=== PATIENT | male | born 1955 | race Caucasian/White ===

== ENCOUNTER 2019-09-19 07:07 | Day surgery (SDC) | payer SELFPAY ==
[2019-09-18 09:51] VITALS: BMI 28.4
[2019-09-19 07:32] VITALS: BP 141/81; PULSE 70; RESP 18; TEMP 36.6; O2SAT 96
[2019-09-19] MEDS: sodium chloride 0.9% 1,000 ML 30 ML (07:40)
--- NOTE | 2019-09-19 08:11 | PM.HPUD ---
H&P update H&P Update: DATE OF SURGERY/PROCEDURE: 09/19/19 DATE H&P PERFORMED: 05/29/19 PLANNED PROCEDURE: Operation Date: 09/19/19 08:00 Proposed Procedures p Colonoscopy(Not Applicable) - Harshal López MD Full H&P HPI: PRIMARY INDICATION/DIAGNOSIS FOR SURGICAL PROCEDURE: Family history of colon cancer PLANNED PROCEDURE: Colonoscopy under MAC HPI: No GI symptoms Perinent History: Social History: Social History Smoking and tobacco status: never smoked Alcohol intake: never Pertinent Exam Findings: PHYSICAL EXAM: alert and oriented x 3 OTHER PERTINENT EXAM FINDINGS: Abdomen: Soft A&P Assessment and plan (1) Family history of colon cancer: Plan for colonoscopy under MAC Status: Acute Code(s): Z80.0 - Family history of malignant neoplasm of digestive organs
--- NOTE | 2019-09-19 08:15 | ANES.PREANES ---
Pre-Anesthetic Assessment Pre-Anesthetic Assessment: Height/Weight: Height 1.65 m Weight 77.564 kg Temp Pulse Resp BP Pulse Ox 97.8 F 70 18 141/81 96 09/19/19 07:32 09/19/19 07:32 09/19/19 07:32 09/19/19 07:32 09/19/19 07:32 Proposed Procedure: Operation Date: 09/19/19 08:00 Proposed Procedures p Colonoscopy(Not Applicable) - Harshal López MD Was Beta Joe taken within 24 hours: N/A Last intake: Intake Last Liquid Date 09/18/19 Last Liquid Time 22:00 Last Solid Date 09/17/19 Last Solid Time 20:00 Last Intake: 00:00 Social: Social History: No alcohol and No tobacco Exam: Pre-Anes Outpt Exam: alert, oriented x 3, clear to auscultation bilaterally and regular rate & rhythm Airway: Submandibular: WNL Cervical ROM: WNL MP: 2 Dentition: Full History/ROS: No significant history except as noted and No significant complaints Pulmonary: Pulmonary: None reported CV/HEM: CV/HEM: None reported : : None reported Hepatic: Hepatic: None reported GI: GI: None reported Metabolic: Metabolic: None reported Musc/skel: Musc/skel: None reported Neuropsych: Neuropsych: None reported Anesthetic Plan: ASA status: II Anesthesia: MAC Risk of > 500 ml blood loss (7ml/kg in children): No PFSH Anesthesia PFSH: Family History (Updated 09/19/19 @ 08:15 by Harshal López MD) Brother Cancer Colon cancer Social History (Updated 09/18/19 @ 08:55 by Angela Mcgovern) Smoking and tobacco status: never smoked Alcohol intake: never Data Anesthesia Cardiac Studies: No Data to Display
[2019-09-19 08:40] VITALS: BP 102/65; PULSE 68; RESP 16; TEMP 36.1; O2SAT 95
[2019-09-19 08:52] VITALS: BP 112/77; PULSE 65; RESP 16; O2SAT 97
--- NOTE | 2019-09-19 14:44 | ANE.PACU ---
 Inpatient post-anesthesia follow up: Airway intact: Yes Vital signs: Temperature 96.9 F Pulse Rate [Monito r] 65 Respiratory Rate 16 Blood Pressure [Le ft Arm] 112/77 Pulse Oximetry 97 Oxygen Delivery Me thod Room Air Oxygen Flow Rate 2 Fraction of Inspir ed Oxygen Hydration adequate: Yes Nausea and vomiting: No Mental status: Baseline
== END 2019-09-19 09:05 | disposition home or self-care (01) ==
PROVIDERS: Family Provider Urology; Visit Provider Surgery
PROC: 0DJD8ZZ Inspection of Lower Intestinal Tract, Via Natural or Artificial Opening Endoscopic (ICD-10-PCS; CPT 45378; principal; 2019-09-19 08:00)
DX: Z80.0 Family history of malignant neoplasm of digestive organs (principal); D12.2 Benign neoplasm of ascending colon; D12.4 Benign neoplasm of descending colon; D12.3 Benign neoplasm of transverse colon; K57.30 Diverticulosis of large intestine without perforation or abscess without bleeding; D12.5 Benign neoplasm of sigmoid colon
CPT/HCPCS: 12345; 45380; 45385; 88305; 96365; J2704; J7030

== ENCOUNTER → 2020-07-15 08:42 | Outpatient (BNVA) | payer SELFPAY | PROVIDERS: Family Provider Urology; PCP Urology; Visit Provider Urology | DX: R97.20 Elevated prostate specific antigen [PSA] (principal); N41.1 Chronic prostatitis | CPT/HCPCS: 81003; 84153 ==

== ENCOUNTER → 2021-01-13 08:48 | Outpatient (BNVA) | payer MEDICARE, SELFPAY | PROVIDERS: Family Provider Urology; Visit Provider Urology | DX: R97.20 Elevated prostate specific antigen [PSA] (principal); N41.1 Chronic prostatitis; Z80.42 Family history of malignant neoplasm of prostate | CPT/HCPCS: 81003; 84153 ==

== ENCOUNTER → 2021-07-16 08:27 | Outpatient (BNVA) | payer OTHER, SELFPAY | PROVIDERS: Family Provider Urology; PCP Nurse Practitioner Family; Visit Provider Urology | DX: R97.20 Elevated prostate specific antigen [PSA] (principal); Z80.42 Family history of malignant neoplasm of prostate; N52.9 Male erectile dysfunction, unspecified | CPT/HCPCS: 81003; 84153 ==

== ENCOUNTER 2022-01-13 07:31 | Outpatient (CLI) | payer OTHER, SELFPAY ==
[2022-01-13 08:29] LABS: Prostate Specific Antigen Scr 10.39 ng/mL (0-4)
== END 2022-01-13 07:32 | disposition home or self-care (01) ==
PROVIDERS: PCP Nurse Practitioner Family; Visit Provider Urology
DX: N41.1 Chronic prostatitis (principal); R97.20 Elevated prostate specific antigen [PSA]
CPT/HCPCS: 36415; 81003; G0103

== ENCOUNTER 2022-07-07 08:06 | Outpatient (CLI) | payer MEDICARE, SELFPAY ==
[2022-07-07 09:06] LABS: Prostate Specific AG Urology 10.95 ng/mL (0-4)
== END 2022-07-07 08:07 | disposition home or self-care (01) ==
LOC: LAB 08:20
PROVIDERS: PCP Nurse Practitioner Family; Visit Provider Urology
DX: R97.20 Elevated prostate specific antigen [PSA] (principal)
CPT/HCPCS: 36415; 81003; 84153

== ENCOUNTER 2022-08-07 07:30 | Outpatient (CLI) | payer MEDICARE, SELFPAY ==
[2022-08-07 07:46] VITALS: BMI 29.1
--- NOTE | 2022-08-07 08:27 | ECG_ITS ---
[facility] Test Date: 2022-08-07 Pat Name: Mirza Bloom Department: Room: Gender: Male Hand Etcher: : 1955 Requested By: Keyanna Bales Order Number: [id number] Anaya MD: Ruthy Lima M.D. Interpretive Statements NAME OF STUDY: EXERCISE SESTAMIBI STRESS TEST INDICATION: Previous PR; Arrhythmia PROCEDURE: At the baseline, the patient's blood pressure was 172/80 mm Hg with a heart rate of 74 bpm and oxygen saturation of 97%. The baseline electrocardiogram showed normal sinus rhythm with normal ST-Ts. ??? The patient exercised for 7 minutes and 1 second on a [standard José Miguel protocol]. Patient attained a maximum heart rate of 145 beats per minute( 94 % of the maximum predicted heart rate) with a blood pressure at the peak exercise of 210/97 mm Hg. The EKG at the peak exercise revealed sinus tachycardia with no significant ST-T wave chanfes. Patient did not have any chest pain or any significant cardiac arrhythmias with the exercise. Frequent PVC couplets noted during exercise. ??? During the recovery phase, there were no new changes. ??? Blood pressure at the end of the recovery phase was 178/93 mm Hg with a heart rate of 76 beats per minute and oxygen saturation of 98%. ??? CONCLUSION: 1. Normal EKG response to treadmill exercise. 2. No exercise-induced chest pain or cardiac arrhythmia. 3. Good exercise tolerance, attained a maximum of 10.2 METs. 4. Baseline hypertension with normal response to exercise. 5. Perfusion portion of the study will be reported separately. RESULTS TO DR BALES Electronically Signed On 08-08-2022 12:27:34 CHEMICAL RADIATION TECHNICIAN by Ruthy Lima M.D. [id number]
--- NOTE | 2022-08-07 08:28 | NMCV_ITS ---
NM merna perf SPECT r/s* [id number] Wolf Mirza Age: 66 Gender: M : 1955 Exam Date: 08/07/2022 08:45 Ordering Phys: Keyanna Segovia MD ([email or web address]) Technologist: BRITTANY Arellano Exam Location: [facility] Indications: CORONARY ANGIOPLASTY STATUS STRESS TEST Please see separate stress test report in [facility] for full findings IMAGE PROTOCOL Rest/Stress 1 Exercise Day Radiopharmaceutical Dose (mCi) Administration Site Administered by Rest: Tc-99m 9.6 IV BRITTANY Adkins Sestamibi Stress:Tc-99m 31.3 IV BRITTANY Adkins Sestamibi Rest: 07-Aug-2022 60 Discovery 630 Stress: 07-Aug-2022 15 Discovery 630 Radiopharmaceutical was injected at 86 % maximum heart rate. Images obtained in supine and prone position. SPECT RESULTS Technical Quality: Excellent Raw Data Analysis: Normal Image Corrections: No attenuation or motion correction applied Summed Stress Score: 0 Summed Rest Score: 0 Summed Difference Score: 0 PERFUSION FINDINGS Small sized perfusion abnormality of moderate severity of basal to apical inferior and apical lateral ugalde on rest and supine stress images with improved tracer uptake in prone stress images. FUNCTIONAL RESULTS (calculated via Gated SPECT) Stress Image LV EF (%): 59 Stress EDV (mL):145 TID: 0.82 Stress ESV (mL):59 FUNCTIONAL FINDINGS: The left ventricle is normal in size. Transient Ischemia Dilatation of 0.82. There is normal left ventricular systolic function. The left ventricular ejection fraction is normal with a value of 59%. There is normal left ventricular wall thickening. IMPRESSIONS 1. Small sized perfusion abnormality of moderate severity of basal to apical inferior and apical lateral ugalde. 2. This may represent attenuation artifact or old myocardial infarction in right coronary artery. 3. Overall left ventricular systolic function is normal without regional wall motion abnormalities, LVEF=59%. 4. EKG portion of the study will be reported separately. 5. No coronary ischemia based on this study. Ruthy Lima MD (Electronically Signed) Final Date: 09 August 2022 22:38 S
[2022-08-07 09:37] VITALS: BP 180/81; PULSE 73
== END 2022-08-07 07:31 | disposition home or self-care (01) ==
PROVIDERS: PCP Nurse Practitioner Family; Visit Provider Internal Medicine Cardiovascular Disease
DX: I25.2 Old myocardial infarction (principal); I49.9 Cardiac arrhythmia, unspecified
CPT/HCPCS: 36415; 78452; 93017; A9500

== ENCOUNTER 2022-08-14 09:00 | Outpatient (CLI) | payer MEDICARE, SELFPAY ==
--- NOTE | 2022-08-14 09:15 | USCV_ITS ---
Mirza Bloom Age: 66 Gender: M : 1955 Exam Date: 08/14/2022 09:20 Ordering Phys: Keyanna Segovia MD ([email or web address]) Technologist: CHARLES [place] [facility] [place]ication: ARRHYTHMIA BP: 132 / 72 HR: 56 Rhythm: Sinus Technical Quality: Good MEASUREMENTS (Male / Female) Normal Values 2D ECHO LVOT Diameter 2.0 cm LV Ejection Fraction MOD 2C 57.9 % LV Ejection Fraction 2C AL 58.6 % LA Diameter 3.1 cm LA Width 3.4 cm LA Height 5.4 cm RA Width 3.9 cm RA Height 4.4 cm Aorta at Sinotubular Diameter 2.6 cm IVC Diameter 1.2 cm M-MODE Aortic Annulus Diameter 3.2 cm LA Ao Ratio MM 0.9 MV E Point Septal Separation 0.8 cm DOPPLER AV Peak Velocity 167.7 cm/s LVOT Peak Velocity 83.0 cm/s AV Area Cont Eq vti 1.7 cm squared AV Area Cont Eq pk 1.6 cm squared MV Peak Velocity 90.0 cm/s MV Area PHT 3.1 cm squared Mitral E to A Ratio 0.9 MV E' Velocity 38.5 cm/s Mitral E to MV E' Ratio 7.2 Mitral E to LV E' Lateral Ratio 6.1 Mitral E to LV E' Septal Ratio 8.7 TR Peak Velocity 287.8 cm/s TR Peak Gradient 33.1 mmHg TR Mean Velocity 230.6 cm/s TR Mean Gradient 22.3 mmHg TR Velocity Time Integral 100.9 cm TV Peak E Velocity 57.0 cm/s Right Atrial Pressure 3.0 mmHg Pulmonary Artery Systolic Pressu 36.1 mmHg PV Peak Velocity 99.0 cm/s RV Acceleration Time 0.1 s RV Ejection Time 0.3 s RV AcT/ET 0.5 FINDINGS Left Ventricle Normal left ventricular size with a borderline low ejection fraction of 50%(visual). Mild diffuse hypokinesia of the left ventricle. Right Ventricle The right ventricle is normal in size and function. Right Atrium Mildly increased right atrial size. Left Atrium Mildly increased left atrial size. Mitral Valve Mild mitral valve regurgitation. Aortic Valve Trace aortic valve regurgitation. Tricuspid Valve [id number] tricuspid valve regurgitation. Estimated pulmonary artery peak systolic pressure of 36 mmHg Pulmonic Valve No gross abnormalities noted Pericardium Normal pericardium without effusion. Aorta Normal aortic annulus size. IVC Normal inferior vena cava. CONCLUSIONS Normal left ventricular size with a borderline low ejection fraction of 50%(visual). Mild diffuse hypokinesia of the left ventricle. Mild biatrial enlargement The right ventricle is normal in size and function. Mild mitral valve regurgitation. Trace aortic valve regurgitation. Vjnb-[id number] tricuspid valve regurgitation. Estimated pulmonary artery peak systolic pressure of 36 mmHg There is no pericardial effusion. There are no intracardiac masses. No similar previous studies are available for comparison Patient was found to have frequent arrhythmias in the form of bigeminy, during the study Dr Keyanna Segovia MD [facility] (Electronically Signed) Final Date: 14 August 2022 19:39 S
== END 2022-08-14 09:01 | disposition home or self-care (01) ==
LOC: RAD 09:01
PROVIDERS: PCP Nurse Practitioner Family; Visit Provider Internal Medicine Cardiovascular Disease
DX: I49.3 Ventricular premature depolarization (principal); I08.3 Combined rheumatic disorders of mitral, aortic and tricuspid valves; R06.09 Other forms of dyspnea
CPT/HCPCS: 93306

== ENCOUNTER → 2022-12-28 10:14 | Outpatient (BNVA) | payer MEDICARE, SELFPAY | PROVIDERS: PCP Family Medicine; Visit Provider Urology | DX: R97.20 Elevated prostate specific antigen [PSA] (principal) | CPT/HCPCS: 84153 ==

== ENCOUNTER → 2023-01-04 13:40 | Outpatient (BNVA) | payer MEDICARE, SELFPAY | PROVIDERS: PCP Family Medicine; Visit Provider Urology | DX: N41.1 Chronic prostatitis (principal); R97.20 Elevated prostate specific antigen [PSA]; Z80.42 Family history of malignant neoplasm of prostate; N52.9 Male erectile dysfunction, unspecified | CPT/HCPCS: 81003; 99213 ==

== ENCOUNTER → 2023-05-24 13:54 | Outpatient (BNVA) | payer MEDICARE, SELFPAY | PROVIDERS: PCP Nurse Practitioner Family; Visit Provider Internal Medicine Cardiovascular Disease | DX: I49.3 Ventricular premature depolarization (principal); I42.8 Other cardiomyopathies; I10 Essential (primary) hypertension; I07.1 Rheumatic tricuspid insufficiency | CPT/HCPCS: 99214 ==

== ENCOUNTER → 2024-05-22 13:54 | Outpatient (BNVA) | payer MEDICARE, SELFPAY | PROVIDERS: PCP Nurse Practitioner Family; Visit Provider Internal Medicine Cardiovascular Disease | DX: I42.8 Other cardiomyopathies (principal); I10 Essential (primary) hypertension; I49.3 Ventricular premature depolarization; I36.1 Nonrheumatic tricuspid (valve) insufficiency | CPT/HCPCS: 99214 ==

== ENCOUNTER → 2024-09-25 13:17 | Outpatient (BNVA) | payer MEDICARE, SELFPAY | PROVIDERS: PCP Nurse Practitioner Family; Visit Provider Surgery | DX: D50.9 Iron deficiency anemia, unspecified (principal); Z80.0 Family history of malignant neoplasm of digestive organs | CPT/HCPCS: 99204 ==

== ENCOUNTER 2024-10-11 05:54 | Day surgery (SDC) | payer MEDICARE, SELFPAY ==
[2024-10-11 06:07] VITALS: BP 130/86; PULSE 62; RESP 16; TEMP 36.2; O2SAT 98; BMI 28.3
[2024-10-11] MEDS: sodium chloride 0.9% 500 ML 15 ML IV (06:21)
--- NOTE | 2024-10-11 06:57 | ANES.PREANE2 ---
Pre-Anesthetic Assessment Height/Weight: Height 1.65 m Weight 77.111 kg Temp Pulse Resp BP Pulse Ox O2 Del Method 97.2 F L 62 16 130/86 98 Room Air 10/11/24 06:07 10/11/24 06:07 10/11/24 06:07 10/11/24 06:07 10/11/24 06:07 10/11/24 06:07 Preop Diagnosis: Fe def anemia Operation Date: 10/11/24 07:00 Proposed Procedures p EGD 63421, 48330, G0105, D50.9, Z80.0(Not Applicable) - Ambrosio Meraz DO s Colonoscopy(Not Applicable) - Ambrosio Meraz DO Was Beta Joe taken within 24 hours: N/A Was Clonidine taken within 24 hours: N/A Last intake: Intake Last Liquid Date 10/10/24 Last Liquid Time 21:00 Last Solid Date 10/09/24 Last Solid Time 20:00 Social No alcohol and No tobacco Exam alert, oriented x 3, clear to auscultation bilaterally and regular rate & rhythm Airway Submandibular: within normal limits Cervical ROM: within normal limits Mallampati: Class II Dentition: full History/ROS No significant history except as noted and No significant complaints Pulmonary None reported CV/HEM Arrythmia and Hypertension None reported Hepatic None reported GI None reported Metabolic Thyroid Disease [facility]/skel None reported Neuropsych None reported Anesthetic Plan ASA status: 3 Anesthesia: Anesthesia Evaluation and MAC Risk of > 500 ml blood loss (7ml/kg in children): No Medications/Allergies Home Medications ?Medication ?Instructions ?Recorded ?Confirmed ?Last Taken ?Type ascorbic acid (vitamin C) 500 mg 500 mg PO DAILY 09/18/19 10/11/24 10/10/24 History tablet (Vitamin C) cetirizine 10 mg tablet (Zyrtec) 10 mg PO DAILY 09/18/19 10/11/24 10/10/24 History aspirin 81 mg tablet,delayed 81 mg PO DAILY 06/29/22 10/11/24 10/10/24 History release (Adult Aspirin Regimen) cholecalciferol (vitamin D3) 25 25 mcg PO DAILY 06/29/22 10/11/24 10/10/24 History mcg (1,000 unit) capsule tadalafil 20 mg tablet 20 mg PO DAILY PRN sexual activity 01/04/23 10/11/24 Unknown Rx #20 tabs levothyroxine 75 mcg capsule 75 mcg PO DAILY 05/22/24 10/11/24 10/10/24 History lisinopril 2.5 mg tablet 2.5 mg PO DAILY 30 days #30 tabs 05/22/24 10/11/24 10/10/24 Rx magnesium L-lactate 84 mg 84 mg PO DAILY #90 tabs 08/01/24 10/11/24 10/10/24 Rx tablet,extended release (Magtab) Allergies Allergy/AdvReac Type Severity Reaction Status Date / Time Penicillins Allergy Unknown Verified 10/09/24 09:44 Current Medications Generic Name Dose Route Start Last Admin Trade Name Freq PRN Reason Stop Dose Admin Sodium Chloride 500 mls @ 15 mls/hr 10/11/24 06:01 10/11/24 06:21 Sodium Chloride 0.9% IV 10/12/24 06:00 15 mls/hr .Q24H PRN Administration COLONOSCOPY FLUIDS PFSH Anesthesia Medical History (Updated 09/25/24 @ 13:56 by Ambrosio Meraz DO) History of colon polyps Elevated PSA Erectile dysfunction Family hx of prostate cancer Chronic prostatitis Diverticulosis Found on colonoscopy Surgical History Status post colonoscopy with polypectomy 09/19/2019 : Ascending colon: 7 mm pedunculated polyp removed with a hot snare Transverse colon: At the hepatic lesion 5 mm sessile polyp removed with cold biopsy forceps Descending colon: 5 mm sessile polyp removed with cold biopsy forceps Sigmoid colon: Moderate diverticulosis, 3 mm sessile polyp removed with cold biopsy forceps Family History Brother Cancer Colon cancer Mother , at age 83 Parkinson disease Father , at age 80 Cancer prostate Lung disease Dementia Denies family history of Diabetes CAD (coronary artery disease) Clotting disorder Chronic kidney disease (CKD) Suicide Anesthesia complication Bleeding disorder Stroke Social History Smoking and tobacco/nicotine status: never used tobacco/nicotine Alcohol intake: never Substance/Drug Use: never Adopted: No Caregiver/support person: No Lives independently: No Household members: spouse Marital status: Current occupational status: employed Data Anesthesia Cardiac Studies: Echocardiogram 08/14/22 Sestamibi Stress Test (Cardiology) 08/07/22 Holter Monitor 04/06/22
--- NOTE | 2024-10-11 07:04 | W.PM.OPSUD ---
Surgery/Procedure H&P Update DATE OF PROCEDURE: October 11, 2024 DATE H&P PERFORMED: 09/25/24 H&P UPDATE INFORMATION: I have reviewed H&P completed within last 30 days, I have examined patient prior to procedure and No changes to prior documentation PREOP DIAGNOSIS: Fe def anemia PLANNED PROCEDURE: Operation Date: 10/11/24 07:00 Proposed Procedures p EGD 79047, 42420, G0105, D50.9, Z80.0(Not Applicable) - DO russell Jenkins Colonoscopy(Not Applicable) - Ambrosio Meraz DO
[2024-10-11 07:40] VITALS: BP 114/73; PULSE 66; RESP 20; TEMP 36.1; O2SAT 97
[2024-10-11 07:45] VITALS: BP 126/83; PULSE 60; RESP 18; O2SAT 95
--- NOTE | 2024-10-11 08:25 | ANE.PACU2 ---
Inpatient post-anesthesia follow up: Vital signs: Temperature 97.0 F Pulse Rate 60 Respiratory Rate 18 Blood Pressure 126/83 Pulse Oximetry 95 Oxygen Delivery Me thod Room Air Oxygen Flow Rate Fraction of Inspir ed Oxygen
== END 2024-10-11 08:25 | disposition home or self-care (01) ==
PROVIDERS: PCP Nurse Practitioner Family; Visit Provider Surgery
PROC: 0DJ08ZZ Inspection of Upper Intestinal Tract, Via Natural or Artificial Opening Endoscopic (ICD-10-PCS; principal; 2024-10-11 07:00)
PROC: 0DJD8ZZ Inspection of Lower Intestinal Tract, Via Natural or Artificial Opening Endoscopic (ICD-10-PCS; CPT 45378; 2024-10-11 07:00)
DX: D12.5 Benign neoplasm of sigmoid colon (principal); D50.9 Iron deficiency anemia, unspecified; K29.81 Duodenitis with bleeding; K57.30 Diverticulosis of large intestine without perforation or abscess without bleeding; I85.00 Esophageal varices without bleeding; K21.9 Gastro-esophageal reflux disease without esophagitis; K52.9 Noninfective gastroenteritis and colitis, unspecified; K64.8 Other hemorrhoids; Z86.0100 Personal history of colon polyps, unspecified; I10 Essential (primary) hypertension; Z79.899 Other long term (current) drug therapy; Z79.82 Long term (current) use of aspirin; Z88.0 Allergy status to penicillin; Z79.890 Hormone replacement therapy
CPT/HCPCS: 43239; 45380; 45385; 88305; J2704; J7040

== ENCOUNTER → 2024-10-23 13:13 | Outpatient (BNVA) | payer MEDICARE, SELFPAY | PROVIDERS: PCP Nurse Practitioner Family; Visit Provider Surgery | DX: Z09 Encounter for follow-up examination after completed treatment for conditions other than malignant neoplasm (principal); D50.9 Iron deficiency anemia, unspecified; I85.00 Esophageal varices without bleeding; K64.8 Other hemorrhoids; Z86.0100 Personal history of colon polyps, unspecified | CPT/HCPCS: 99214 ==

== ENCOUNTER → 2025-05-21 13:52 | Outpatient (BNVA) | payer MEDICARE, SELFPAY | PROVIDERS: PCP Nurse Practitioner Family; Visit Provider Internal Medicine Cardiovascular Disease | DX: I10 Essential (primary) hypertension (principal); I49.3 Ventricular premature depolarization; I42.8 Other cardiomyopathies; I36.1 Nonrheumatic tricuspid (valve) insufficiency; Z79.82 Long term (current) use of aspirin | CPT/HCPCS: 99214 ==